=== PATIENT | male | born 1980 | race Hispanic/Latino ===

== ENCOUNTER → 2017-10-27 17:55 | Outpatient (CLI) | payer OTHER, SELFPAY ==
[2017-10-27 19:47] LABS: Chlamydia Trachomatis by PCR Negative (Negative); Neisserai gonorrhoeae by PCR Negative (Negative); Probe Check PASS; Sample Adequacy Control PASS; Specimen Processing Control PASS
== END ==
PROVIDERS: Visit Provider Nurse Practitioner Adult Health
DX: R30.0 Dysuria (principal); N34.2 Other urethritis
CPT/HCPCS: 87086; 87491; 87591